=== PATIENT | female | born 1995 | race Hispanic/Latino ===

== ENCOUNTER 2022-11-04 13:49 | Emergency (ER) | payer OTHER ==
[~2022-11-04] VITALS: Ht 152.4 cm; Wt 70.3 kg
[2022-11-04] MEDS ORDERED: EFFE75CA2 PO (14:00)
[2022-11-04 16:24] LABS: BASO # 0.1 10^3/uL (0.0-0.2); BASO % 0.7 % (0.0-1.0); EOS % 0.3 % (0.0-3.0); HEMATOCRIT 43.9 % (36.0-47.0); HEMOGLOBIN 14.6 g/dl (12.0-15.5); LYMPH # 2.4 10^3/uL (1.5-5.0); LYMPH % 24.9 % (24.0-44.0); MEAN CORPUSCULAR HEMOGLOBIN 28.9 pg (27.0-33.0); MEAN CORPUSCULAR HGB CONC 33.3 g/dl (32.0-36.5); MEAN CORPUSCULAR VOLUME 86.8 fl (80.0-96.0); MONO # 0.6 10^3/uL (0.0-0.8); NEUTROPHILS # 6.4 10^3/uL (1.5-8.5); NEUTROPHILS % 67.7 % (36.0-66.0); PLATELET COUNT, AUTOMATED 358 10^3/uL (150-450); RED BLOOD COUNT 5.06 10^6/uL (4.00-5.40); WHITE BLOOD COUNT 9.5 10^3/uL (4.0-10.0)
[2022-11-04 16:44] LABS: LIPASE 32 U/L (12-53)
[2022-11-04 16:47] LABS: ALBUMIN 4.3 G/DL (3.2-5.2); ALKALINE PHOSPHATASE 78 U/L (46-116); ALT/SGPT 17 U/L (7.0-40); AST/SGOT 11 U/L (<34); BILIRUBIN,DIRECT 0.1 MG/DL (<0.4); BILIRUBIN,TOTAL 0.4 MG/DL (0.3-1.2); BLOOD UREA NITROGEN 9 MG/DL (9-23); CALCIUM LEVEL 9.3 MG/DL (8.5-10.1); CARBON DIOXIDE LEVEL 24 MMOL/L (20-31); CHLORIDE LEVEL 108 MMOL/L (98-107); GLOMERULAR FILTRATION RATE > 60.0 (>60); GLUCOSE, FASTING 97 MG/DL (60-100); POTASSIUM SERUM 4.2 MMOL/L (3.5-5.1); SODIUM LEVEL 139 MMOL/L (136-145); TOTAL PROTEIN 7.5 G/DL (5.7-8.2)
[2022-11-04 16:52] LABS: HCG, SERUM QUALITATIVE NEGATIVE (NEGATIVE)
[2022-11-04] MEDS ORDERED: NS 1,000 ML IV ONE (17:25)
[2022-11-04] MEDS ORDERED: KETOROLAC 30 MG/ML 1ML VIAL IV ONE (17:25)
[2022-11-04] MEDS ORDERED: ONDANSETRON 4MG 2ML VIAL IV ONE (17:25)
[2022-11-04] MEDS ORDERED: ASPE4PAD TOP (20:34)
[2022-11-04] MEDS ORDERED: NAPR-837 PO (20:34)
[2022-11-04 20:42] VITALS: BP 135/76; TEMP 98.7; O2SAT 100
== END 2022-11-04 20:51 | disposition home or self-care (01) ==
LOC: M ED 13:49 → EDBD 13:49 → M ED 20:51
DX: M54.50 Low back pain, unspecified (principal); I88.0 Nonspecific mesenteric lymphadenitis; R35.89 Other polyuria; K58.9 Irritable bowel syndrome, unspecified; F41.9 Anxiety disorder, unspecified; Z88.8 Allergy status to other drugs, medicaments and biological substances; Z91.011 Allergy to milk products; Z79.891 Long term (current) use of opiate analgesic; Z79.899 Other long term (current) drug therapy
CPT/HCPCS: 74176; 80048; 80076; 81001; 83690; 84703; 85025; 87210; 96361; 96374; 99284; J1885; J2405